=== PATIENT | female | born 1980 | race African-American/Black ===

== ENCOUNTER 2016-06-19 22:40 | Emergency (ER) | payer BC ==
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
[~2016-06-19 22:40] MED LIST: ALBUTEROL17 GM INH; BACTRIM DS TABL1 TA1 PO; BENTYL20 MG PO; BROMFED DM COU118 ML PO; CIPRO PO; DIFLUCAN PO; DOXYCYCLINE HY100 M3 PO; FLAGYL 250 MG PO; FLEXERIL10 MG PO; MACROBID100 M1 PO; METROGEL-VAGINA70 GM VG; MOBIC15 MG PO; NAPROSYN500 MG PO; NO MEDICATIONS; PRILOSEC; PRILOSEC PO; PROTONIX PO; ROBAXIN 750750 M1 PO; TOBREX5 ML OP; VOLTAREN75 MG PO; ZYRTEC; ZYRTEC10 M3
== END 2016-06-19 23:57 | disposition home or self-care (01) ==
LOC: SED 22:40
DX: S16.1XXA Strain of muscle, fascia and tendon at neck level, initial encounter (principal); S39.012A Strain of muscle, fascia and tendon of lower back, initial encounter; K21.9 Gastro-esophageal reflux disease without esophagitis; V44.9XXA Unspecified car occupant injured in collision with heavy transport vehicle or bus in traffic accident, initial encounter; Y92.410 Unspecified street and highway as the place of occurrence of the external cause
CPT/HCPCS: 72100; 72125; 99284